=== PATIENT | male | born 1980 | race Hispanic/Latino ===

== ENCOUNTER 2018-01-23 23:58 | Emergency (ER) | payer OTHER ==
[2018-01-24 00:43] VITALS: BMI 24.3
[2018-01-24 00:48] VITALS: BP 131/84; PULSE 80; RESP 16; TEMP 98.2; O2SAT 98
--- NOTE | 2018-01-24 01:34 | ED PDOC ---
HPI: Neurologic - General Time Seen by Provider: 01/24/18 00:49 Chief Complaint (Nursing): Psychiatric Evaluation Source: patient - History of Present Illness Allergies/Adverse Reactions: Allergies No Known Allergies Allergy (Verified 01/24/18 00:42) Home Medications: Ambulatory Orders Acetaminophen with Codeine [Tylenol with Codeine No. 3 300 mg-30 mg] 2 tab PO Q4H PRN #22 tab 07/19/15 Diclofenac Sodium [Voltaren] 50 mg PO Q8H PRN #60 ect 07/19/15 Lidocaine [Lidoderm] 1 patch TP DAILY PRN #30 tdm 07/19/15 Additional Complaint(s): Hx of seizure d/o p/w hearing voices, states that he believes its part of his seizure profile, states he has multiple seizures a day for many years, states they usual are comprised of confusion and word finding difficulty. States that he hears "gibberish" too and was told by his neurologist to come to the ER for evaluation. Patient requesting EEG. Denies headache, shaking activity, suicidal, or homicidal ideation. Past Medical History Reviewed: Historical Data, Nursing Documentation, Vital Signs Vital Signs: Last Vital Signs Temp 98.2 F 01/24/18 00:45 Pulse 80 01/24/18 00:45 Resp 16 01/24/18 00:45 BP 131/84 01/24/18 00:45 Pulse Ox 98 01/24/18 00:45 - Medical History PMH: Seizures - Family History Family History: States: Unknown Family Hx - Home Medications Home Medications: Ambulatory Orders Medication Instructions Recorded Acetaminophen with Codeine 2 tab PO Q4H PRN #22 tab 07/19/15 [Tylenol with Codeine No. 3 300 mg-30 mg] Diclofenac Sodium [Voltaren] 50 mg PO Q8H PRN #60 ect 07/19/15 Lidocaine [Lidoderm] 1 patch TP DAILY PRN #30 tdm 07/19/15 - Allergies Allergies/Adverse Reactions: Allergies Allergy/AdvReac Type Severity Reaction Status Date / Time No Known Allergies Allergy Verified 01/24/18 00:42 Review of Systems ROS Statement: Except As Marked, All Systems Reviewed And Found Negative Neurological: Positive for: Seizures Physical Exam - Reviewed Nursing Documentation Reviewed: Yes Vital Signs Reviewed: Yes - Physical Exam Appears: Positive for: Well, Non-toxic, No Acute Distress Head Exam: Positive for: ATRAUMATIC, NORMAL INSPECTION, NORMOCEPHALIC Skin: Positive for: Normal Color, Warm, DRY Eye Exam: Positive for: EOMI, Normal appearance, PERRL ENT: Positive for: Normal ENT Inspection Neck: Positive for: Normal, Painless ROM Cardiovascular/Chest: Positive for: Regular Rate, Rhythm Respiratory: Positive for: CNT, Normal Breath Sounds Gastrointestinal/Abdominal: Positive for: Normal Exam, Soft Back: Positive for: Normal Inspection Extremity: Positive for: Normal ROM Lymphatic: Positive for: Other Neurologic/Psych: Positive for: Alert, tire center manager II-XII, Oriented, Mood/Affect ( strange affect). Negative for: Motor/Sensory Deficits, Cerebellar Tests (normal ), Gait (normal), Aphasia, Facial Droop - ECG O2 Sat by Pulse Oximetry: 98 Pulse Ox Interpretation: Normal Medical Decision Making Medical Decision Making: A/P Hx of seizure d/o p/w hearing voices -patient is not SI/HI, believes his symptoms to be part of his seizure profile -was planning on CT and labs, possibly crisis eval, but patient walked out of ER when he was informed that we were unable to do EEGs in ER Disposition - Clinical Impression Clinical Impression: Seizure disorder - Disposition Disposition: Eloped Disposition Time: 01:35 Condition: STABLE
== END 2018-01-24 01:33 | disposition left against medical advice (07) ==
LOC: H.ER 23:58
DX: G40.909 Epilepsy, unspecified, not intractable, without status epilepticus (principal); R44.0 Auditory hallucinations